=== PATIENT | male | born 1945 | race Caucasian/White ===

== ENCOUNTER 2016-09-28 14:36 | Inpatient (IN) | payer BC, OTHER ==
[~2016-09-28] VITALS: Ht 172.7 cm; Wt 79.3 kg
[~2016-09-28 14:36] MED LIST: ASPEC81 PO; ATOR-26 PO; LSN25 PO; METO50TA7 PO; NTRGSL/4 UT; PLV75 PO
[2016-09-28] MEDS ORDERED: OPTIRAY 320 IV PRN (15:15)
[2016-09-28 15:16] LABS: BASO % 0.1 %; BASO ABS # 0.01 K/uL (0-0.2); COMPLETE YES; EOS % 0.3 %; HEMATOCRIT 42.8 % (42-52); IG% 0.3 %; LYMPH % 6.6 %; LYMPH ABS # 0.99 K/uL (1.2-3.4); MEAN CELL VOLUME 92.4 fL (80-100); MEAN CORPUSCULAR HGB CONC 34.6 g/dl (32-36); MEAN PLATELET VOLUME 9.7 fL (7.4-10.4); MONO % 6.4 %; NEUT % 86.3 %; PLATELET COUNT 275 K/uL (130-400); RED BLOOD COUNT 4.63 M/uL (4.7-6.1); WHITE BLOOD COUNT 15.05 K/uL (4.8-10.8)
[2016-09-28 15:35] LABS: BUN/CREATININE RATIO 15.7 (10-20); CALCIUM 8.4 mg/dl (8.5-10.1); POTASSIUM 3.7 mmol/L (3.5-5.1)
[2016-09-28] MEDS ORDERED: PANT40TA PO (16:01)
[2016-09-28] MEDS ORDERED: ASPI81TA28 PO (16:01)
[2016-09-28] MEDS ORDERED: LISI-789 PO (16:01)
--- NOTE | 2016-09-28 16:13 | EMERGENCY ROOM VISIT NOTE ---
ED Visit Note First contact with patient: 14:46 I have seen and examined this patient with Darling Watson and generally agree with the treatment plan as discussed. Current/Historical Medications Scheduled Aspirin (Aspirin Ec), 81 MG PO DAILY Atorvastatin (Lipitor), 80 MG PO QPM Clopidogrel Bisulfate (Clopidogrel), 75 MG PO DAILY Lisinopril (Zestril), 2.5 MG PO DAILY Metoprolol Succ (Toprol Xl) (Toprol-Xl), 50 MG PO DAILY Nitroglycerin (Nitrostat), 0.4 MG UT PRN Pantoprazole (Protonix), 40 MG PO DAILY Allergies Coded Allergies: Penicillins (Verified Allergy, Severe, SEVERE HIVES, 09/28/16) Vital Signs Date Time Temp Pulse Resp B/P (MAP) Pulse Ox O2 Delivery O2 Flow Rate FiO2 09/28/16 14:38 36.6 89 20 150/84 96 Room Air Laboratory Results 09/28/16 15:05 Red Blood Count 4.63, Mean Corpuscular Volume 92.4, Mean Corpuscular Hemoglobin 32.0, Mean Corpuscular Hemoglobin Concent 34.6, Mean Platelet Volume 9.7, Neutrophils (%) (Auto) 86.3, Lymphocytes (%) (Auto) 6.6, Monocytes (%) (Auto) 6.4, Eosinophils (%) (Auto) 0.3, Basophils (%) (Auto) 0.1, Neutrophils # (Auto) 12.98, Lymphocytes # (Auto) 0.99, Monocytes # (Auto) 0.97, Eosinophils # (Auto) 0.05, Basophils # (Auto) 0.01 09/28/16 15:05 Test 09/28/16 15:05 White Blood Count 15.05 K/uL (4.8-10.8) Red Blood Count 4.63 M/uL (4.7-6.1) Hemoglobin 14.8 g/dL (14.0-18.0) Hematocrit 42.8 % (42-52) Mean Corpuscular Volume 92.4 fL (80-100) Mean Corpuscular Hemoglobin 32.0 pg (25-34) Mean Corpuscular Hemoglobin Concent 34.6 g/dl (32-36) Platelet Count 275 K/uL (130-400) Mean Platelet Volume 9.7 fL (7.4-10.4) Neutrophils (%) (Auto) 86.3 % Lymphocytes (%) (Auto) 6.6 % Monocytes (%) (Auto) 6.4 % Eosinophils (%) (Auto) 0.3 % Basophils (%) (Auto) 0.1 % Neutrophils # (Auto) 12.98 K/uL (1.4-6.5) Lymphocytes # (Auto) 0.99 K/uL (1.2-3.4) Monocytes # (Auto) 0.97 K/uL (0.11-0.59) Eosinophils # (Auto) 0.05 K/uL (0-0.5) Basophils # (Auto) 0.01 K/uL (0-0.2) RDW Standard Deviation 45.5 fL (36.4-46.3) RDW Coefficient of Variation 13.3 % (11.5-14.5) Immature Granulocyte % (Auto) 0.3 % Immature Granulocyte # (Auto) 0.05 K/uL (0.00-0.02) Anion Gap 10.0 mmol/L (3-11) Est Creatinine Clear Calc Drug Dose 67.4 ml/min Estimated GFR () 88.6 Estimated GFR (Non- 76.5 BUN/Creatinine Ratio 15.7 (10-20) Calcium Level 8.4 mg/dl (8.5-10.1) Total Bilirubin 0.7 mg/dl (0.2-1) Direct Bilirubin 0.2 mg/dl (0-0.2) Aspartate Amino Transf (AST/SGOT) 14 U/L (15-37) Alanine Aminotransferase (ALT/SGPT) 18 U/L (12-78) Alkaline Phosphatase 71 U/L (45-117) Total Protein 7.3 gm/dl (6.4-8.2) Albumin 3.7 gm/dl (3.4-5.0) Lipase 206 U/L (73-393) Departure Information Referrals Sundar Guzman D.O. (PCP) Patient Instructions My [facility]
[2016-09-28 16:32] LABS: URINE APPEARANCE CLEAR (CLEAR); URINE BILIRUBIN NEG (NEG); URINE COLOR YELLOW; URINE NITRITE NEG (NEG); URINE SPECIFIC GRAVITY 1.014 (1.000-1.030); UROBILINOGEN NEG (NEG); ZZUR CULT IF INDIC CLEAN CATCH NO
[2016-09-28 16:36] LABS: MANUAL MICROSCOPIC REQUIRED? NO; REVIEW REQ? NO
--- NOTE | 2016-09-28 18:14 | DIAGNOSTIC IMAGING REPORT ---
CT ABD/PELVIS IV AND ORAL CONT CLINICAL HISTORY: Right lower quadrant abdominal pain COMPARISON STUDY: April 2008 TECHNIQUE: Following the IV administration of 119 mL of Optiray-320, CT scan of the abdomen and pelvis was performed from the lung bases to the proximal femurs. Images are reviewed in the axial, sagittal, and coronal planes. IV contrast was administered without complication. CT DOSE: 304.62 mGy.cm FINDINGS: Lower chest: The heart is normal in size and configuration, without pericardial effusion. The lung bases and pleural spaces are clear. Liver: There is a stable 22 mm exophytic nodule arising from the inferior aspect of the right lobe of the liver. Gallbladder: Unremarkable. Spleen: Normal in size and attenuation. Pancreas: Unremarkable. Adrenal glands: There is stable mild nodular thickening of the left adrenal gland Kidneys: There is an 8 mm mid pole left renal hypodensity, likely representing a cyst. There is no hydronephrosis. Bowel: There are no transition zones to indicate bowel obstruction. The proximal and mid portions of the appendix appear normal. There is dilatation of the appendiceal tip. Adjacent to the appendiceal tip is a 35mm rim-enhancing fluid collection. There is infiltration of the surrounding fat. The findings are viewed as suspicious for a perforated tip appendicitis with a periappendiceal abscess. There is extensive colonic diverticulosis. There are no acute peridiverticular inflammatory changes. Peritoneum: There is no intraperitoneal free air or abdominal ascites. Vasculature: The abdominal aorta is normal in course and caliber. Adenopathy: None. Pelvic viscera: The bladder, and pelvic viscera are unremarkable. Skeletal structures: No destructive osseous lesions are seen. IMPRESSION: 1. No evidence of bowel obstruction. No evidence of free air 2. Right lower quadrant inflammatory process. The findings most likely are secondary to a ruptured tip appendicitis with an adjacent 35mm periappendiceal abscess 3. Extensive diverticulosis. No evidence of acute peridiverticular inflammatory change 4. Relatively stable 22 mm exophytic nodule arising from the inferior aspect of the right lobe of the liver. This is felt to be benign Electronically signed by: Rio Pedroza M.D. 09/28/2016 6:12 PM Dictated Date/Time: 09/28/2016 6:01 PM
--- NOTE | 2016-09-28 18:55 | EMERGENCY ROOM VISIT NOTE ---
History First contact with patient: 14:46 Chief Complaint: ABDOMINAL PAIN Stated Complaint: LOWER RIGHT STOMACH PAIN Nursing Triage Summary: see triage note History of Present Illness The patient is a 71 year old male who presents to the Emergency Room with complaints of right lower abdominal pain for one month. The patient denies any associated fever, nausea, vomiting or diarrhea. The patient denies any change in urinary status. He denies any dysuria, hematuria or urgency. The patient states that the pain is intermittent and he may go several days without pain and then he gets a back again. It is worse with movement or when he is standing. 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 The patient is working in [place]. He is normally only home on the weekends therefore it is hard to get into his family doctor, Dr. Guzman for evaluation. Last week while he was home on the weekend he went to urgent care for the symptoms and they didn't "nothing". Today he was experiencing some increased pain which is why he came to the emergency room. The patient cannot correlate the increased pain with food intake. The patient does not feel any lump in the area of the pain. The patient denies any testicular or scrotal pain. Review of Systems 10 system review was performed and was negative unless stated otherwise history of present illness. Past Medical/Surgical History Medical Problems: (1) Diverticulosis Of Colon With Hemorrhage (2) Esophageal Reflux (3) Hyperlipidemia Nec/Nos (4) Hypertension Nos (5) Old Myocardial Infarct Shoulder surgery Family History Cancer Heart disease Hypertension Lung disease Social History Smoking Status: Never Smoker Alcohol Use: occasionally Marital Status: Housing Status: lives with significant other Occupation Status: retired Current/Historical Medications Scheduled Aspirin (Aspirin Ec), 81 MG PO DAILY Atorvastatin (Lipitor), 80 MG PO QPM Clopidogrel Bisulfate (Clopidogrel), 75 MG PO DAILY Lisinopril (Zestril), 2.5 MG PO DAILY Metoprolol Succ (Toprol Xl) (Toprol-Xl), 50 MG PO DAILY Nitroglycerin (Nitrostat), 0.4 MG UT PRN Pantoprazole (Protonix), 40 MG PO DAILY Allergies Coded Allergies: Penicillins (Verified Allergy, Severe, SEVERE HIVES, 09/28/16) Physical Exam Vital Signs Date Time Temp Pulse Resp B/P (MAP) Pulse Ox O2 Delivery O2 Flow Rate FiO2 09/28/16 17:06 76 18 132/73 09/28/16 14:38 36.6 89 20 150/84 96 Room Air Physical Exam GENERAL: 71-year-old white male appears in no acute distress. MENTAL Status: Alert and oriented 3. EYES: No icterus noted MOUTH: Mucosa is moist NECK: Supple, no lymphadenopathy noted. No carotid bruits noted. LUNGS: Clear auscultation without wheezes rales or rhonchi. CARDIAC: Regular rate and rhythm without murmur. Pulses is full and equal throughout. BACK: No CVA tenderness noted. ABDOMEN: Positive bowel sounds all 4 quadrants. Soft, tenderness palpation in the right lower quadrant otherwise nontender to palpation without organomegaly or masses. I also examined the patient in the erect position with patient doing the Valsalva maneuver without any palpable masses. The area of pain is above the inguinal region. EXTREMITIES: No cyanosis or edema noted. Medical Decision & Procedures ER Provider Diagnostic Interpretation: CT ABD/PELVIS IV AND ORAL CONT CLINICAL HISTORY: Right lower quadrant abdominal pain COMPARISON STUDY: April 2008 TECHNIQUE: Following the IV administration of 119 mL of Optiray-320, CT scan of the abdomen and pelvis was performed from the lung bases to the proximal femurs. Images are reviewed in the axial, sagittal, and coronal planes. IV contrast was administered without complication. CT DOSE: 304.62 mGy.cm FINDINGS: Lower chest: The heart is normal in size and configuration, without pericardial effusion. The lung bases and pleural spaces are clear. Liver: There is a stable 22 mm exophytic nodule arising from the inferior aspect of the right lobe of the liver. Gallbladder: Unremarkable. Spleen: Normal in size and attenuation. Pancreas: Unremarkable. Adrenal glands: There is stable mild nodular thickening of the left adrenal gland Kidneys: There is an 8 mm mid pole left renal hypodensity, likely representing a cyst. There is no hydronephrosis. Bowel: There are no transition zones to indicate bowel obstruction. The proximal and mid portions of the appendix appear normal. There is dilatation of the appendiceal tip. Adjacent to the appendiceal tip is a 35mm rim-enhancing fluid collection. There is infiltration of the surrounding fat. The findings are viewed as suspicious for a perforated tip appendicitis with a periappendiceal abscess. There is extensive colonic diverticulosis. There are no acute peridiverticular inflammatory changes. Peritoneum: There is no intraperitoneal free air or abdominal ascites. Vasculature: The abdominal aorta is normal in course and caliber. Adenopathy: None. Pelvic viscera: The bladder, and pelvic viscera are unremarkable. Skeletal structures: No destructive osseous lesions are seen. IMPRESSION: 1. No evidence of bowel obstruction. No evidence of free air 2. Right lower quadrant inflammatory process. The findings most likely are secondary to a ruptured tip appendicitis with an adjacent 35mm periappendiceal abscess 3. Extensive diverticulosis. No evidence of acute peridiverticular inflammatory change 4. Relatively stable 22 mm exophytic nodule arising from the inferior aspect of the right lobe of the liver. This is felt to be benign Electronically signed by: Rio Pedroza M.D. 09/28/2016 6:12 PM Laboratory Results 09/28/16 15:05 Red Blood Count 4.63, Mean Corpuscular Volume 92.4, Mean Corpuscular Hemoglobin 32.0, Mean Corpuscular Hemoglobin Concent 34.6, Mean Platelet Volume 9.7, Neutrophils (%) (Auto) 86.3, Lymphocytes (%) (Auto) 6.6, Monocytes (%) (Auto) 6.4, Eosinophils (%) (Auto) 0.3, Basophils (%) (Auto) 0.1, Neutrophils # (Auto) 12.98, Lymphocytes # (Auto) 0.99, Monocytes # (Auto) 0.97, Eosinophils # (Auto) 0.05, Basophils # (Auto) 0.01 09/28/16 15:05 Test 09/28/16 15:05 09/28/16 15:50 White Blood Count 15.05 K/uL (4.8-10.8) Red Blood Count 4.63 M/uL (4.7-6.1) Hemoglobin 14.8 g/dL (14.0-18.0) Hematocrit 42.8 % (42-52) Mean Corpuscular Volume 92.4 fL (80-100) Mean Corpuscular Hemoglobin 32.0 pg (25-34) Mean Corpuscular Hemoglobin Concent 34.6 g/dl (32-36) Platelet Count 275 K/uL (130-400) Mean Platelet Volume 9.7 fL (7.4-10.4) Neutrophils (%) (Auto) 86.3 % Lymphocytes (%) (Auto) 6.6 % Monocytes (%) (Auto) 6.4 % Eosinophils (%) (Auto) 0.3 % Basophils (%) (Auto) 0.1 % Neutrophils # (Auto) 12.98 K/uL (1.4-6.5) Lymphocytes # (Auto) 0.99 K/uL (1.2-3.4) Monocytes # (Auto) 0.97 K/uL (0.11-0.59) Eosinophils # (Auto) 0.05 K/uL (0-0.5) Basophils # (Auto) 0.01 K/uL (0-0.2) RDW Standard Deviation 45.5 fL (36.4-46.3) RDW Coefficient of Variation 13.3 % (11.5-14.5) Immature Granulocyte % (Auto) 0.3 % Immature Granulocyte # (Auto) 0.05 K/uL (0.00-0.02) Anion Gap 10.0 mmol/L (3-11) Est Creatinine Clear Calc Drug Dose 67.4 ml/min Estimated GFR () 88.6 Estimated GFR (Non- 76.5 BUN/Creatinine Ratio 15.7 (10-20) Calcium Level 8.4 mg/dl (8.5-10.1) Total Bilirubin 0.7 mg/dl (0.2-1) Direct Bilirubin 0.2 mg/dl (0-0.2) Aspartate Amino Transf (AST/SGOT) 14 U/L (15-37) Alanine Aminotransferase (ALT/SGPT) 18 U/L (12-78) Alkaline Phosphatase 71 U/L (45-117) Total Protein 7.3 gm/dl (6.4-8.2) Albumin 3.7 gm/dl (3.4-5.0) Lipase 206 U/L (73-393) Urine Color YELLOW Urine Appearance CLEAR (CLEAR) Urine pH 5.0 (4.5-7.5) Urine Specific [place] 1.014 (1.000-1.030) Urine Protein NEG (NEG) Urine Glucose (UA) NEG (NEG) Urine Ketones TRACE (NEG) Urine Occult Blood NEG (NEG) Urine Nitrite NEG (NEG) Urine Bilirubin NEG (NEG) Urine Urobilinogen NEG (NEG) Urine Leukocyte Esterase NEG (NEG) ED Course The patient was evaluated. The patient's EMR and medication list was reviewed. The patient's pressure was initially elevated but on reevaluation was 132/73. IV access was obtained. CBC differential, renal profile, LFTs and lipase levels were ordered. Urinalysis was ordered. The patient was offered pain medication but initially declined. Labs are reviewed. The patient's white count was elevated 15,000 otherwise labs are unremarkable. Urinalysis was negative. CT of the abdomen and pelvis with IV and oral contrast was ordered and interpreted by the radiologist as above. The patient was independently evaluated by Dr. Castellon who agrees with treatment plan. CT revealed ruptured tip of the appendix with a [address] Castellon left for the day therefore I discussed the case with Dr. Kay who was in agreement with treatment plan. Dr. Bar was consulted Medical Decision Differential diagnoses include reflux, gastritis, gastroenteritis, pancreatitis , cholelithiasis, cholecystitis, appendicitis, mesenteric ischemia, pyelonephritis, urinary tract infection, renal colic, diverticulitis, shingles, bowel obstruction, intussusception, hernia, Impression Primary Impression: Appendicitis Departure Information Dispostion Being Evaluated By Surgeon Condition GOOD Referrals Sundar Guzman DMaryOMary (PCP) Patient Instructions My [facility] Problem Qualifiers Primary Impression: Appendicitis Appendicitis type: acute appendicitis Acute appendicitis type: other Qualified Codes: K35.89 - Other acute appendicitis
[2016-09-28] MEDS ORDERED: METRONIDAZOLE 500MG / 100ML NSS IV STA (19:20)
--- NOTE | 2016-09-28 19:31 | History & Physical Bridge Note ---
H&P Re-Evaluation Bridge Note: I have examined the patient, reviewed the History & Physical and in the interval since the performance of the History & Physical I have noted the following changes of clinical significance: No changes noted and p dictated stat line 100 confirmation number [id number] at 19;25 dx acute appendicitis, plan open appendectomy
[2016-09-28] MEDS ORDERED: METRONIDAZOLE 500MG / 100ML NSS ONE (19:39)
[2016-09-28] MEDS ORDERED: CIPROFLOXACIN 400MG / 200ML D5W ONE (19:39)
--- NOTE | 2016-09-28 19:56 | HISTORY & PHYSICAL EXAMINATION ---
DATE OF ADMISSION: 09/28/2016 Seen in the Emergency Room on 09/28/2016 at 7:45 in the evening. SUMMARY: I was called by Maryana Watson, vero PA, just approximately 20 minutes ago for this gentleman that had findings of what appears to be acute appendicitis. His story dates back to about a month ago. 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 Actually was seen last Thursday or Thursday for the pain which became a little bit more significant always localized on right lower quadrant, went to an urgent center were apparently to the patient and they said it was probably a belt used for his work that was causing his painin there, spent about 4 minutes with the patient. They did not order anything and the pain progressively got worse. He went back to work after that visit and where it came back today somewhere his noticed that he was not getting any better and actually looked worse. PAST MEDICAL HISTORY: His past medical history is positive for having had shoulder surgery. In the past, he had rheumatic fever as a child and had significant REACTION TO PENICILLIN. Approximately in 2008, he had coronary stents placed and he has been on Plavix since that time. He is followed locally by Dr. Frye, but has had no cardiac issues. ALLERGIES: OTHER THAN THE PENICILLIN, HE DENIES ANY ALLERGIES. REVIEW OF SYSTEMS: Denies any shortness of breath or any neurological symptoms. PRESENT MEDICATIONS: Include: Aspirin, Lipitor, Plavix, Zestril, Toprol, Nitrostat, and Protonix. PHYSICAL EXAMINATION: GENERAL: At this time, revealed a very pleasant 71-year-old gentleman who said he wants to do anything to get rid of this pain. HEAD: Normocephalic. EYES: PERRLA. The sclerae is nonicteric. NECK: There is no cervical lymphadenopathy. HEART: Normal sinus. LUNGS: Clear. ABDOMEN: He is exquisitely tender in the right lower quadrant at McBurney's point. He might have a small hernia in the right inguinal area, but this is not the issue. This is only appreciated with a cough. EXTREMITIES: No edema appreciated. VITAL SIGNS: His last vitals showed a temperature of 36.6, pulse 76, respirations 18, blood pressure 132/73, O2 sats 96 on room air. LABORATORY DATA: He got a 15,000 white count with a left shift. His chemistries showed a BUN of 16, creatinine 1.0, potassium 3.7. IMAGING DATA: CAT scan findings reviewed. I could not see the actual imaging at this time, but basically it seems like he has extensive diverticulosis but no evidence of any acute inflammatory changes, right lower quadrant inflammatory process, most likely secondary to ruptured tip appendicitis and adjacent 35 mm periappendiceal abscess. IMPRESSION: At this point, given the severity of his symptomatology certainly one consideration would be to treat him with antibiotics. The abscess is about 35 mm, probably be hard to drain percutaneously, but I suspect given all the symptomatology and what were are dealing with, I advised the patient just proceed for appendectomy. We will do it open just because of the Plavix, afraid to do it laparoscopically. Risk and complications of surgery were explained to the patient which includes bleeding, infection and he would like to proceed accordingly. As he stated he could cut me completely wide open to get rid of this pain. ONI
[2016-09-28] MEDS ORDERED: LIDO 2%/EPINEPHRINE 1:100000 20 ML VIAL INFIL ONE (20:06)
--- NOTE | 2016-09-28 20:14 | DIAGNOSTIC IMAGING REPORT ---
CHEST ONE VIEW PORTABLE CLINICAL HISTORY: Preoperative chest COMPARISON STUDY: February 19, 2014 FINDINGS: The cardiac and mediastinal contours are normal. There is no evidence of focal pulmonary consolidation. There is no evidence of failure. No pleural effusions are visualized.[ There is a tiny calcified left lower lung zone granuloma IMPRESSION: No active disease in the chest. Electronically signed by: Rio Pedroza M.D. 09/28/2016 8:13 PM Dictated Date/Time: 09/28/2016 8:13 PM
[2016-09-28] MEDS ORDERED: ATROPINE SULFATE 0.1 MG/ML 5ML SYR IV PRN (21:00)
[2016-09-28] MEDS ORDERED: ONDANSETRON INJ 2 MG/ML 2 ML VIAL IV PRN ×2 (21:00→22:45)
[2016-09-28] MEDS ORDERED: KETOROLAC TROMETHAMINE 30 MG/ML VIAL IV. PRN (21:00)
[2016-09-28] MEDS ORDERED: EpHEDrine SULFATE INJ 50 MG/ML AMP IV PRN (21:00)
[2016-09-28] MEDS ORDERED: FENTANYL CITRATE INJ 50 MCG/1 ML 2 ML VIAL IV PRN (21:00)
[2016-09-28] MEDS ORDERED: PROPOFOL IV EMULSION 10 MG/ML 20 ML VIAL IV ONE (21:01)
[2016-09-28] MEDS ORDERED: LIDOCAINE HCL 2% 2 ML VIAL (20MG/ML) ONE (21:01)
[2016-09-28] MEDS ORDERED: ROCURONIUM BROMIDE 10 MG/ML 5 ML VIAL ONE (21:02)
[2016-09-28] MEDS ORDERED: SUCCINYLCHOLINE CHLORIDE 20 MG/ML 10 ML VIAL IV ONE (21:02)
[2016-09-28] MEDS ORDERED: FENTANYL CITRATE INJ 50 MCG/1 ML 2 ML VIAL ONE ×2 (21:03)
[2016-09-28] MEDS ORDERED: MIDAZOLAM HCL 1 MG/ML 2ML VIAL ONE (21:04)
[2016-09-28] MEDS ORDERED: LIDOCAINE/EPINEPHRINE 1% 20 ML VIAL ONE (21:26)
[2016-09-28] MEDS ORDERED: KETOROLAC TROMETHAMINE 30 MG/ML VIAL ONE (22:17)
[2016-09-28] MEDS ORDERED: NEOSTIGMINE METHYLSULFATE 5 MG/5 ML SYR ONE (22:23)
[2016-09-28] MEDS ORDERED: GLYCOPYRROLATE INJ 0.2 MG/ML VIAL ONE ×2 (22:23)
[2016-09-28] MEDS ORDERED: NITROGLYCERIN 0.4 MG SL PER TAB CHARGE UT SCH (22:45)
[2016-09-28] MEDS ORDERED: OXYCODONE/ACETAMINOPHEN 5-325 TAB PO PRN (22:45)
--- NOTE | 2016-09-28 22:53 | [facility] Post Operative Brief Note ---
Immediate Operative Summary Operative Date Sep 28, 2016. Pre-Operative Diagnosis Ruptured appendicitis Post-Operative Diagnosis Same as preop Procedure(s) Performed Appendectomy Surgeon Dr. Gonazlez Intermediate Project Manager Surgeon(s) 0 Estimated Blood Loss 5 cc Findings ruptured appendicitis Specimens A: appendix Culture of peritoneal fluid sent for routine C&S, anaerobic/aerobic microbes Drains 19 migel per stab and sub cut
--- NOTE | 2016-09-28 22:59 | Anesthesiology Progress Note ---
Anesthesia Post Op Note Date & Time Sep 28, 2016 at 22:59 Vital Signs Pain Intensity: 6.0 Vital Signs Past 12 Hours Date Time Temp Pulse Resp B/P (MAP) Pulse Ox O2 Delivery O2 Flow Rate FiO2 09/28/16 20:57 72 17 136/82 96 Room Air 09/28/16 19:53 81 17 140/97 97 Room Air 09/28/16 17:06 76 18 132/73 09/28/16 14:38 36.6 89 20 150/84 96 Room Air Notes Mental Status: alert / awake / arousable, participated in evaluation Pt Amnestic to Procedure: Yes Nausea / Vomiting: adequately controlled Pain: adequately controlled Airway Patency, RR, SpO2: stable & adequate BP & HR: stable & adequate Hydration State: stable & adequate Anesthetic Complications: no major complications apparent
[2016-09-28 23:55] VITALS: BP 128/74; PULSE 75; TEMP 36.6; Ht 172.7 cm; Wt 79.3 kg
[2016-09-29] VITALS (10 sets, daily range): BP systolic 110–159; BP diastolic 68–92; PULSE 68–78; TEMP 36.4–37.2; O2SAT 94–97
[2016-09-29] MEDS: HYDROmorphone INJ 1 MG/ML SYR IV PRN ×4 (00:24→21:33)
[2016-09-29] MEDS: LACTATED RINGER'S 1000ML 1,000 ML IV SCH ×4 (01:20→20:06)
[2016-09-29] MEDS: METRONIDAZOLE / NSS 500 MG in PREMIXED NSS 100 ML IV SCH ×3 (04:40→20:07)
[2016-09-29] MEDS ORDERED: CIPROFLOXACIN 400MG / 200ML D5W IV ONE (06:00)
[2016-09-29 07:11] LABS: INR 1.1 (0.9-1.1); PROTHROMBIN TIME (PATIENT) 11.3 SECONDS (9.0-12.0)
--- NOTE | 2016-09-29 07:16 | OPERATIVE REPORT ---
DATE OF OPERATION: 09/28/2016 SURGEON: .Dr. Gonzalez. PREOPERATIVE DIAGNOSIS: Acute appendicitis, ruptured. POSTOPERATIVE DIAGNOSIS: Same. PROCEDURE: Open appendectomy. SUMMARY: After induction of general endotracheal anesthesia, the patient's abdomen was prepped with Betadine scrubbing solution and properly draped. We made a standard McBurney type incision, just a little bit inferior to the usual place, since the patient's pain seemed to be more inferior, on top of the inguinal ligament. Therefore, an incision was made, deepened through subcutaneous tissue, muscle splitting, we entered the peritoneal cavity, elevated the peritoneum. Once we elevated the peritoneum, we met with some whitish cloudy fluid, which we cultured. At this point, we were able to feel the appendix, which happened to be a little bit up above our incision. Therefore, we enlarged the incision sufficiently enough that we were able then to identify the cecum and elevate the base of the appendix that all the way up to half way was completely normal. We took it off the cecum using a JOSE ALEJANDRO stapler. The mesoappendix was then divided, using hemostats and ligated with 2-0 silk. Towards the distal tip of the appendix, which was very much enlarged, we could not see any distal appendix itself. There was, what appeared to be, almost a mucinous type of [id number] drainage from the tip itself, which appeared to be larger than normal. At this point, we were able then to free it completely, irrigate the peritoneal cavity. There was no other evidence of any seeding or anything suspicious for a mucinous process. At this point, a stab wound inferior to incision and placed the Jorge Luis drain down in the cul-de-sac right gutter area. Actually, it came right out almost to the inferior medial aspect of the incision, since we were a stage above the inguinal canal. We closed, then, the peritoneum with a running 0 chromic. Muscle splitting incision was reapproximated with 2-0 Vicryl suture. Subcutaneous tissue was irrigated. We then closed the fascia on top of the muscle splitting incision, using interrupted 2-0 Dexon suture, irrigated it subQ, placed a piece of the Anabella drain subcutaneously, junior for skin edges. Dressing was applied. The procedure was tolerated well by the patient. Estimated blood loss approximately 5 mL. The patient was taken to recovery room in good condition. I attest to the content of the Intraoperative Record and any orders documented therein. Any exceptions are noted below. MTDD
--- NOTE | 2016-09-29 07:45 | Surgery Progress Note ---
Surgery Progress Note Date of Service Sep 29, 2016. Subjective Post OP Day: 1 + feeling well, + pain controlled, No nausea Objective Vital Signs: Date Time Temp Pulse Resp B/P (MAP) Pulse Ox O2 Delivery O2 Flow Rate FiO2 09/29/16 07:30 36.9 73 18 136/77 (96) 97 Room Air 09/29/16 03:16 36.6 73 14 125/69 (87) 97 Room Air 09/29/16 02:04 36.5 77 14 110/68 (82) 96 Room Air 09/29/16 01:02 36.8 78 14 121/71 (88) 95 Room Air 09/29/16 00:25 36.4 75 14 132/78 (96) 94 Room Air 09/28/16 23:55 Room Air 09/28/16 23:55 Room Air 09/28/16 23:55 36.6 75 14 128/74 Room Air 09/28/16 23:47 78 16 09/28/16 23:47 37.1 78 16 123/71 (79) 98 09/28/16 23:42 78 18 132/70 (80) 95 09/28/16 23:42 79 18 09/28/16 23:37 78 17 09/28/16 23:37 79 17 130/70 (84) 96 09/28/16 23:32 79 12 129/65 (74) 95 09/28/16 23:32 79 12 09/28/16 23:27 80 16 129/73 (95) 98 Room Air 09/28/16 23:27 80 16 09/28/16 23:22 81 136/78 (87) 99 09/28/16 23:22 81 09/28/16 23:21 37.0 80 16 99 Mask 2 09/28/16 23:21 80 09/28/16 23:17 138/80 (103) 09/28/16 23:16 82 09/28/16 23:16 82 100 09/28/16 23:12 134/73 (87) 09/28/16 23:11 79 14 09/28/16 23:11 78 14 100 09/28/16 23:07 138/78 (99) 09/28/16 23:06 82 12 100 09/28/16 23:06 82 14 09/28/16 23:02 150/73 (94) 09/28/16 23:01 83 18 09/28/16 23:01 83 18 100 09/28/16 22:57 155/79 (108) 09/28/16 22:56 85 10 09/28/16 22:56 85 16 100 Mask 8 09/28/16 22:53 159/84 (97) 09/28/16 21:50 36.4 83 18 159/84 (97) 100 Mask 10 09/28/16 20:57 72 17 136/82 96 Room Air 09/28/16 19:53 81 17 140/97 97 Room Air 09/28/16 17:06 76 18 132/73 09/28/16 14:38 36.6 89 20 150/84 96 Room Air Physical Exam: Jorge Luis drainage (35 cc) Abdomen: soft Incision(s): clean, drainage (hemanth in incision) Laboratory Results: Results Past 24 Hours Test 09/28/16 15:05 09/28/16 15:50 09/28/16 20:57 09/29/16 06:17 Range/Units White Blood Count 15.05 4.8-10.8 K/uL Red Blood Count 4.63 4.7-6.1 M/uL Hemoglobin 14.8 14.0-18.0 g/dL Hematocrit 42.8 42-52 % Mean Corpuscular Volume 92.4 80-100 fL Mean Corpuscular Hemoglobin 32.0 25-34 pg Mean Corpuscular Hemoglobin Concent 34.6 32-36 g/dl Platelet Count 275 130-400 K/uL Mean Platelet Volume 9.7 7.4-10.4 fL Neutrophils (%) (Auto) 86.3 % Lymphocytes (%) (Auto) 6.6 % Monocytes (%) (Auto) 6.4 % Eosinophils (%) (Auto) 0.3 % Basophils (%) (Auto) 0.1 % Neutrophils # (Auto) 12.98 1.4-6.5 K/uL Lymphocytes # (Auto) 0.99 1.2-3.4 K/uL Monocytes # (Auto) 0.97 0.11-0.59 K/uL Eosinophils # (Auto) 0.05 0-0.5 K/uL Basophils # (Auto) 0.01 0-0.2 K/uL RDW Standard Deviation 45.5 36.4-46.3 fL RDW Coefficient of Variation 13.3 11.5-14.5 % Immature Granulocyte % (Auto) 0.3 % Immature Granulocyte # (Auto) 0.05 0.00-0.02 K/uL Sodium Level 144 136-145 mmol/L Potassium Level 3.7 3.5-5.1 mmol/L Chloride Level 109 98-107 mmol/L Carbon Dioxide Level 25 21-32 mmol/L Anion Gap 10.0 3-11 mmol/L Blood Urea Nitrogen 16 7-18 mg/dl Creatinine 1.00 0.60-1.40 mg/dl Est Creatinine Clear Calc Drug Dose 67.4 ml/min Estimated GFR () 88.6 Estimated GFR (Non- 76.5 BUN/Creatinine Ratio 15.7 10-20 Random Glucose 93 70-99 mg/dl Calcium Level 8.4 8.5-10.1 mg/dl Total Bilirubin 0.7 0.2-1 mg/dl Direct Bilirubin 0.2 0-0.2 mg/dl Aspartate Amino Transf (AST/SGOT) 14 15-37 U/L Alanine Aminotransferase (ALT/SGPT) 18 12-78 U/L Alkaline Phosphatase 71 45-117 U/L Total Protein 7.3 6.4-8.2 gm/dl Albumin 3.7 3.4-5.0 gm/dl Lipase 206 73-393 U/L Urine Color YELLOW Urine Appearance CLEAR CLEAR Urine pH 5.0 4.5-7.5 Urine Specific [place] 1.014 1.000-1.030 Urine Protein NEG NEG Urine Glucose (UA) NEG NEG Urine Ketones TRACE NEG Urine Occult Blood NEG NEG Urine Nitrite NEG NEG Urine Bilirubin NEG NEG Urine Urobilinogen NEG NEG Urine Leukocyte Esterase NEG NEG Bedside Glucose 91 70-99 mg/dl Prothrombin Time 11.3 9.0-12.0 SECONDS Prothromb Time International Ratio 1.1 0.9-1.1 Microbiology Results 09/28/16 Gram Stain - Final, Resulted 09/28/16 Bacterial Culture, Resulted Pending Assessment & Plan ruptured appendicitis stable post op can have clears, will advance slowly IV Cipro/Flagyl seen with Dr. Gonzalez
[2016-09-29 07:51] LABS: BASO % 0.2 %; BASO ABS # 0.02 K/uL (0-0.2); COMPLETE YES; EOS % 0.4 %; HEMATOCRIT 38.2 % (42-52); IG% 0.3 %; LYMPH % 11.6 %; LYMPH ABS # 1.22 K/uL (1.2-3.4); MEAN CELL VOLUME 93.6 fL (80-100); MEAN CORPUSCULAR HEMOGLOBIN 31.4 pg (25-34); MEAN CORPUSCULAR HGB CONC 33.5 g/dl (32-36); MEAN PLATELET VOLUME 9.8 fL (7.4-10.4); MONO % 8.8 %; NEUT % 78.7 %; PLATELET COUNT 246 K/uL (130-400); RED BLOOD COUNT 4.08 M/uL (4.7-6.1); WHITE BLOOD COUNT 10.56 K/uL (4.8-10.8)
[2016-09-29] MEDS ORDERED: PNEUMOCOCCAL ADMINISTRATION CHARGE ONE (08:00)
[2016-09-29] MEDS ORDERED: PNEUMOCOCCAL POLYSACCHARIDES 25 MCG/0.5 ML VIAL/SYR IM. ONE (08:00)
[2016-09-29 08:07] LABS: BUN/CREATININE RATIO 13.8 (10-20); POTASSIUM 3.6 mmol/L (3.5-5.1)
[2016-09-29] MEDS: CIPROFLOXACIN / D5W 400 MG in PREMIXED IN D5W 200 ML IV SCH ×2 (08:26→21:27)
[2016-09-29 08:28] LABS: CALCIUM 7.7 mg/dl (8.5-10.1)
[2016-09-29] MEDS: ASPIRIN 81 MG ECTAB PO SCH (10:10)
[2016-09-29] MEDS: METOPROLOL SUCC 50MG EXT REL TAB PO SCH (10:11)
[2016-09-29] MEDS: CLOPIDOGREL BISULFATE 75 MG TAB PO SCH (10:11)
[2016-09-29] MEDS: HEPARIN SOD 5000 UNIT/0.5 ML CARP SQ SCH ×2 (10:12→21:26)
[2016-09-29] MEDS: PANTOprazole SOD 40 MG TAB PO SCH (10:13)
[2016-09-29] MEDS: LISINOPRIL 2.5 MG TAB PO SCH (10:13)
[2016-09-29] MEDS ORDERED: NURSING VERBAL MED ORDER ONE (12:15)
[2016-09-29] MEDS ORDERED: ATORVASTATIN 40 MG TAB PO SCH (21:00)
[2016-09-30] MEDS: HYDROmorphone INJ 1 MG/ML SYR IV PRN (02:25)
[2016-09-30] MEDS: LACTATED RINGER'S 1000ML 1,000 ML IV SCH (03:52)
[2016-09-30] MEDS: METRONIDAZOLE / NSS 500 MG in PREMIXED NSS 100 ML IV SCH ×2 (03:52→11:50)
[2016-09-30 06:15] LABS: BASO % 0.2 %; BASO ABS # 0.02 K/uL (0-0.2); COMPLETE YES; EOS % 1.1 %; HEMATOCRIT 38.3 % (42-52); IG% 0.1 %; LYMPH % 16.4 %; MEAN CELL VOLUME 94.6 fL (80-100); MEAN CORPUSCULAR HEMOGLOBIN 32.8 pg (25-34); MEAN CORPUSCULAR HGB CONC 34.7 g/dl (32-36); MEAN PLATELET VOLUME 10.2 fL (7.4-10.4); NEUT % 70.2 %; PLATELET COUNT 248 K/uL (130-400); RED BLOOD COUNT 4.05 M/uL (4.7-6.1); WHITE BLOOD COUNT 9.15 K/uL (4.8-10.8)
[2016-09-30 06:50] LABS: BUN/CREATININE RATIO 8.7 (10-20); CALCIUM 7.9 mg/dl (8.5-10.1); CREATININE 1.1 mg/dl (0.60-1.40); POTASSIUM 3.2 mmol/L (3.5-5.1)
[2016-09-30] MEDS ORDERED: OXYCODONE/ACETAMINOPHEN 5-325 TAB PO PRN (07:30)
--- NOTE | 2016-09-30 07:34 | Surgery Progress Note ---
Surgery Progress Note Date of Service Sep 30, 2016. Subjective Post OP Day: 2 + feeling well, + diet (clears), No bowel movement, No nausea Objective Vital Signs: Date Time Temp Pulse Resp B/P (MAP) Pulse Ox O2 Delivery O2 Flow Rate FiO2 09/29/16 23:25 Room Air 09/29/16 23:15 36.8 68 18 137/80 (99) 96 Room Air 09/29/16 19:50 96 Room Air 09/29/16 19:00 37.2 76 21 139/83 (101) 96 Room Air 09/29/16 15:00 36.4 75 18 159/92 (114) 96 Room Air 09/29/16 10:08 78 139/73 (95) 09/29/16 08:00 Room Air Physical Exam: Jorge Luis drainage (50) Abdomen: non distended, soft Incision(s): clean, dry, no erythema Laboratory Results: Results Past 24 Hours Test 09/30/16 05:37 Range/Units White Blood Count 9.15 4.8-10.8 K/uL Red Blood Count 4.05 4.7-6.1 M/uL Hemoglobin 13.3 14.0-18.0 g/dL Hematocrit 38.3 42-52 % Mean Corpuscular Volume 94.6 80-100 fL Mean Corpuscular Hemoglobin 32.8 25-34 pg Mean Corpuscular Hemoglobin Concent 34.7 32-36 g/dl Platelet Count 248 130-400 K/uL Mean Platelet Volume 10.2 7.4-10.4 fL Neutrophils (%) (Auto) 70.2 % Lymphocytes (%) (Auto) 16.4 % Monocytes (%) (Auto) 12.0 % Eosinophils (%) (Auto) 1.1 % Basophils (%) (Auto) 0.2 % Neutrophils # (Auto) 6.42 1.4-6.5 K/uL Lymphocytes # (Auto) 1.50 1.2-3.4 K/uL Monocytes # (Auto) 1.10 0.11-0.59 K/uL Eosinophils # (Auto) 0.10 0-0.5 K/uL Basophils # (Auto) 0.02 0-0.2 K/uL RDW Standard Deviation 46.9 36.4-46.3 fL RDW Coefficient of Variation 13.5 11.5-14.5 % Immature Granulocyte % (Auto) 0.1 % Immature Granulocyte # (Auto) 0.01 0.00-0.02 K/uL Sodium Level 142 136-145 mmol/L Potassium Level 3.2 3.5-5.1 mmol/L Chloride Level 106 98-107 mmol/L Carbon Dioxide Level 26 21-32 mmol/L Anion Gap 10.0 3-11 mmol/L Blood Urea Nitrogen 10 7-18 mg/dl Creatinine 1.10 0.60-1.40 mg/dl Est Creatinine Clear Calc Drug Dose 61.3 ml/min Estimated GFR () 79.0 Estimated GFR (Non- 68.1 BUN/Creatinine Ratio 8.7 10-20 Random Glucose 120 70-99 mg/dl Calcium Level 7.9 8.5-10.1 mg/dl Assessment & Plan ruptured appendicitis WBC normal subQ drain removed advance diet IV Cipro/Flagyl seen with Dr. Gonzalez home today with drain if tolerates diet and po analgesics
[2016-09-30] MEDS ORDERED: METR-163 PO (07:36)
[2016-09-30] MEDS ORDERED: OXYC-57 PO ×2 (07:36→08:41)
[2016-09-30] MEDS ORDERED: CIPR-255 PO (07:36)
--- NOTE | 2016-09-30 07:40 | Discharge Instructions ---
Discharge Instructions Date of Service Sep 30, 2016. Admission Reason for Admission: Appendicitis Discharge Discharge Diagnosis / Problem: ruptured appendicitis Discharge Goals Goal(s): Decrease discomfort Activity Recommendations Activity Limitations: as noted below Lifting Limitations: no more than 10 pounds Shower/Bathe: no limitations (remove bandage daily to shower and recover until drain removed and drainage stops) Driving or Machine Use: after drain removed . Instructions / Follow-Up Instructions / Follow-Up Dr. Gonzalez's office on Tuesday 10/03 to have drain removed at 9:00, call [phone] with any other questions or if you need to change appt, [address] You may take ibuprofen between or instead of Percocet, do not take tylenol Current Hospital Diet Patient's current hospital diet: Low Fat Diet Discharge Diet Recommended Diet: Regular Diet (eat lightly for a few days) Procedures Procedures Performed: Appendectomy Pending Studies Studies pending at discharge: yes List of pending studies: Pathology Medical Emergencies . Who to Call and When: Medical Emergencies: If at any time you feel your situation is an emergency, please call 911 immediately. . Non-Emergent Contact Non-Emergency issues call your: Surgeon Call Non-Emergent contact if: you have a fever, temperature is above 101.5, your pain is not controlled, wound has increased drainage, wound has increased redness, wound has increased pain, you have any medication questions . "Provider Documentation" section prepared by Rivera Almeida. . VTE Core Measure Inpt VTE Proph given/why not?: Unfractionated heparin SQ, SCD's [place] Drug Monitoring Program Search Results: no issues identified
[2016-09-30 07:52] VITALS: O2SAT 96
[2016-09-30 07:54] VITALS: BP 172/90; PULSE 68; TEMP 36.7; O2SAT 96
[2016-09-30] MEDS: CIPROFLOXACIN / D5W 400 MG in PREMIXED IN D5W 200 ML IV SCH (08:02)
[2016-09-30] MEDS: ASPIRIN 81 MG ECTAB PO SCH (08:06)
[2016-09-30] MEDS: METOPROLOL SUCC 50MG EXT REL TAB PO SCH (08:06)
[2016-09-30] MEDS: CLOPIDOGREL BISULFATE 75 MG TAB PO SCH (08:06)
[2016-09-30] MEDS: LISINOPRIL 2.5 MG TAB PO SCH (08:07)
[2016-09-30] MEDS: PANTOprazole SOD 40 MG TAB PO SCH (08:07)
[2016-09-30] MEDS: HEPARIN SOD 5000 UNIT/0.5 ML CARP SQ SCH (08:46)
[2016-09-30 08:56] VITALS: BP 172/90; PULSE 68; TEMP 36.7; O2SAT 96
[2016-09-30] MEDS ORDERED: POTASSIUM CHLORIDE 20 MEQ TABCR PO SCH (09:00)
[2016-09-30] MEDS ORDERED: NURSING VERBAL MED ORDER ONE (09:00)
[2016-09-30 09:30] VITALS: BP 155/79
--- NOTE | 2016-09-30 14:41 | DISCHARGE SUMMARY ---
PRIMARY DISCHARGE DIAGNOSIS: Ruptured appendicitis. SECONDARY DISCHARGE DIAGNOSES: Hypertension, gastroesophageal reflux disease, hyperlipidemia, history of myocardial infarction. PROCEDURE PERFORMED: Open appendectomy. HOSPITAL COURSE: The patient is a 71-year-old male who presented to the Emergency Department with abdominal pain for several weeks, increased about a week ago. His white count was 15,000. CT was consistent with inflammatory process secondary in the right lower quadrant secondary to ruptured appendicitis and 3 cm periappendiceal abscess. He was taken to the operating room that evening for open appendectomy. A Jorge Luis drain was placed. SubQ tissues were also drained. The procedure was well tolerated. He was transferred to the surgical floor. IV Cipro and Flagyl were continued throughout admission as he has a penicillin allergy. He remained afebrile postoperatively. His white count had normalized by postoperative day 2. He was tolerating diet and oral analgesics. Preliminary cultures showed gram negative bacilli. SubQ drain was removed. He was instructed on care of the Jorge Luis drain and will discharge him home with that. Pathology is pending at the time of discharge. DISCHARGE INSTRUCTIONS: Discharge home. Follow up with Dr. Gonzalez's office in 3 days for removal of the Jorge Luis drain. DISCHARGE MEDICATIONS: Percocet 1-2 tablets every 4 hours as needed, Cipro 500 mg p.o. b.i.d. x10 and Flagyl 500 mg p.o. t.i.d. Resume home medications aspirin 81 mg daily, Lipitor 80 mg daily, Plavix 75 mg daily, and Zestril 2.5 mg daily, Toprol-XL 50 mg daily, Nitrostat 0.4 mg as needed and Protonix 40 mg daily.
== END 2016-09-30 12:48 | disposition home or self-care (01) | DRG 340 ==
LOC: C.EDB 14:38 → C.MSW 22:50 → ENRESERV 23:30
PROVIDERS: ADMIT Surgery; ATTEND Surgery
PROC: 0DTJ0ZZ Resection of Appendix, Open Approach (ICD-10-PCS; principal; 2016-09-28 21:00)
DX: K35.2 Acute appendicitis with generalized peritonitis (principal); I10 Essential (primary) hypertension; K21.9 Gastro-esophageal reflux disease without esophagitis; E78.5 Hyperlipidemia, unspecified; I25.2 Old myocardial infarction; Z98.61 Coronary angioplasty status; Z79.02 Long term (current) use of antithrombotics/antiplatelets; Z79.82 Long term (current) use of aspirin; Z82.49 Family history of ischemic heart disease and other diseases of the circulatory system

== ENCOUNTER → 2016-11-19 | Outpatient (CLI) | payer MEDICARE ==
[~2016-11-19] MED LIST changes: -ASPEC81 PO; +ASPI81TA28 PO; +CIPR-255 PO; +LISI-789 PO; -LSN25 PO; +OXYC-57 PO; +PANT40TA PO
[2016-11-19 13:59] LABS: CHOLESTEROL/HDL RATIO 2.5
== END | disposition home or self-care (01) ==
LOC: C.LAB1850 11:59
PROVIDERS: ATTEND Physician Assistant Medical
DX: I25.10 Atherosclerotic heart disease of native coronary artery without angina pectoris (principal)

== ENCOUNTER → 2017-01-20 | Outpatient (CLI) | payer MEDICARE ==
[~2017-01-20] MED LIST changes: +OPTIRAY 320 IV PRN
--- NOTE | 2017-01-20 07:23 | DIAGNOSTIC IMAGING REPORT ---
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 COMPARISON: CT abdomen and pelvis 09/28/2016 and 05/06/2008 TECHNIQUE: Multiple axial CT images of the abdomen and pelvis were obtained following the intravenous administration of 130 mL Optiray 320. Oral contrast also administered. A dose lowering technique was used consistent with the principals of JENNY. FINDINGS: Mild dependent bibasilar atelectasis. Calcified granulomas present within the lateral basal segment left lower lobe. No pneumoperitoneum identified. Imaged inferior cardiac chambers are unremarkable. There is an ovoid circumscribed exophytic lesion again seen arising from the inferior right hepatic lobe, 2.1 x 2.1 cm, previously measuring 2.1 x 1.8 cm on study dated 05/06/2008 demonstrating minimal nodularity or enhancement are fairly, again most likely benign. Gallbladder, pancreas, spleen and right adrenal gland are unremarkable. There is mild nodularity of the left adrenal gland suggesting hyperplasia. Probable cyst of the interpolar left kidney is seen, 7 mm. Similar-appearing lesion measuring 5 mm involves the inferior pole right kidney. No renal calculi or hydronephrosis. Ureters, urinary bladder and prostate are unremarkable. There is moderate plaquing of the abdominal aorta. No bulky retroperitoneal adenopathy. There are suggested bilateral hydroceles. There is no focal bowel wall thickening or bowel obstruction. Extensive sigmoid diverticulosis without diverticulitis. Prior appendectomy without complication. No ascites or peritoneal mass lesions are seen to suggest metastasis. Small fat filled periumbilical hernia is noted, diastases 1.4 cm. Soft tissues are unremarkable. Bones appear intact. Suspicious lytic or blastic bony lesions. Moderate intervertebral disc space narrowing at L5-S1. IMPRESSION: 1. Prior appendectomy. No evidence of metastatic disease or pathologic adenopathy. 2. Exophytic soft tissue lesion arising from the inferior right hepatic lobe is generally stable dating back to 05/06/2008 suggesting benign etiology. 3. Extensive colonic diverticulosis without diverticulitis. The above report was generated using voice recognition software. It may contain grammatical, syntax or spelling errors. Electronically signed by: Josh Cardenas M.D. 01/20/2017 7:22 AM Dictated Date/Time: 01/20/2017 7:13 AM
--- NOTE | 2017-01-20 07:34 | DIAGNOSTIC IMAGING REPORT ---
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 TECHNIQUE: Multidetector CT imaging of the chest was performed after the administration of intravenous contrast. IV contrast: 113 mL of Optiray 320. A dose lowering technique was used consistent with the principles of ALARA (as low as reasonably achievable). COMPARISON: 2008. CT DOSE (mGy.cm): The estimated cumulative dose is 653.80. FINDINGS: Nurse Private Duty topogram: Unremarkable. On soft tissue windows, normal thyroid and thoracic inlet. No axillary, supraclavicular, hilar, or mediastinal lymphadenopathy. Mild atherosclerosis of the descending thoracic aorta. Normal heart size. Coronary artery calcification. No pericardial or pleural effusion. Upper abdomen normal. On lung windows, minimal dependent changes likely atelectasis. Solid 3 mm fissural nodule in the right lower lobe (series 6 image 150). Solid 3 mm nodule in the right lower lobe (series 6 image 193) series. Few punctate nodules along the fissure in the superior segment of the left lower lobe. Old calcified granuloma also noted in the left lower lobe. Airways patent. On bone windows, mild degenerative changes of the thoracic spine. Degenerative changes of the bilateral glenohumeral joints. IMPRESSION: 1. No acute intrathoracic pathology. 2. Multiple small solid pulmonary nodules measuring up to 3 mm. These have been stable since 2008 and are consistent with a benign etiology. No evidence of intrathoracic metastatic disease. Electronically signed by: Bebo Westbrook M.D. 01/20/2017 7:32 AM Dictated Date/Time: 01/20/2017 7:26 AM
== END | disposition home or self-care (01) ==
LOC: C.CTS 06:23
PROVIDERS: ATTEND Surgery
DX: C18.1 Malignant neoplasm of appendix (principal); K57.90 Diverticulosis of intestine, part unspecified, without perforation or abscess without bleeding

== ENCOUNTER → 2017-07-23 | Outpatient (CLI) | payer MEDICARE ==
[~2017-07-23] MED LIST changes: -METO50TA7 PO; +METO50TA8 PO; -OPTIRAY 320 IV PRN; -OXYC-57 PO
[2017-07-23 12:41] LABS: ALT/SGPT 21 U/L (12-78); BLOOD UREA NITROGEN 16 mg/dl (7-18); CALCIUM 9.2 mg/dl (8.5-10.1); CARBON DIOXIDE 27 mmol/L (21-32); CREATININE 1.26 mg/dl (0.60-1.40); GLUCOSE 122 mg/dl (70-99); POTASSIUM 4.3 mmol/L (3.5-5.1); SODIUM 136 mmol/L (136-145)
[2017-07-23 12:47] LABS: AST/SGOT 14 U/L (15-37); CHOLESTEROL 137 mg/dl (0-200); LDL CHOLESTEROL CALCULATED 69 mg/dl
== END | disposition home or self-care (01) ==
LOC: C.LAB1850 10:16
PROVIDERS: ATTEND Physician Assistant Medical
DX: I25.10 Atherosclerotic heart disease of native coronary artery without angina pectoris (principal)

== ENCOUNTER → 2017-07-30 | Outpatient (CLI) | payer MEDICARE ==
[~2017-07-30] MED LIST changes: +OPTIRAY 320 IV PRN
--- NOTE | 2017-07-30 11:17 | DIAGNOSTIC IMAGING REPORT ---
ABD/PELVIS IV AND ORAL CONT CLINICAL HISTORY: 72 years-old Male presenting with appendiceal cancer. TECHNIQUE: Multidetector CT of the abdomen and pelvis was performed after the administration of oral and intravenous contrast. IV contrast: 120 mL of Optiray 320. A dose lowering technique was used consistent with the principles of ALARA (as low as reasonably achievable). COMPARISON: 01/20/2017. CT DOSE (mGy.cm): The estimated cumulative dose is 700.78. FINDINGS: Dress Cap Maker topogram: Unremarkable. Lung bases: Minimal basilar opacities, likely atelectasis. Calcified granuloma in the left lower lobe. Normal heart size. No pericardial or pleural effusion. Liver: Normal morphology. Stable 2.2 cm exophytic lesion arising from the inferior right hepatic lobe. Patent hepatic vasculature. Biliary: No intrahepatic or extrahepatic biliary ductal dilatation. Normal gallbladder. Pancreas: Normal. Spleen: Normal. Adrenal glands: Normal. Kidneys and ureters: Well-defined hypodensities in the left kidney, likely simple cysts. Minimal nonspecific left perinephric fat stranding, unchanged. No convincing evidence of nephrolithiasis. No hydronephrosis. Bladder: Incompletely evaluated secondary to underdistention. Pelvic organs: Prostate enlargement likely secondary to benign prostatic hyperplasia. Bowel: Diverticulosis. No pericolonic fat stranding. No bowel obstruction. The appendix is surgically absent. Peritoneal cavity: No free fluid or intraperitoneal gas. Lymph nodes: No enlarged lymph nodes in the abdomen or pelvis. Vasculature: Atherosclerosis of the normal caliber abdominal aorta. IVC patent. Abdominal wall: Small fat-containing umbilical hernia. Musculoskeletal: Degenerative changes of the spine. IMPRESSION: 1. Status post appendectomy. No evidence of metastatic disease in the abdomen or pelvis. No lymphadenopathy. 2. Diverticulosis. Electronically signed by: Bebo Westbrook M.D. 07/30/2017 11:15 AM Dictated Date/Time: 07/30/2017 11:06 AM
--- NOTE | 2017-07-30 11:21 | DIAGNOSTIC IMAGING REPORT ---
CHEST CT WITH CONTRAST CT DOSE: 700.78 mGy.cm HISTORY: Mucinous adenocarcinoma of the appendix. Metastatic survey. History of pulmonary nodules. CT TECHNIQUE: Multiaxial CT images of the chest were performed following the intravenous administration of contrast. A dose lowering technique was utilized adhering to the principles of ALARA. COMPARISON: CT chest 01/20/2017, CT abdomen and pelvis of same day, CT chest 10/06/2008.. FINDINGS: Ill-defined 7 mm nodule of the right thyroid appears low attenuating. 10 x 8 mm left paratracheal lymph node on image 127 series 6 appears unchanged. Mildly prominent right paratracheal and subcarinal lymph nodes measuring up to 8 mm are also unchanged. No pathologically enlarged lymph nodes by CT size criteria. Heart is normal in size without pericardial effusion. Coronary arterial disease. Thoracic aorta is normal in both course and caliber. The imaged pulmonary arterial tree is unremarkable. There is no pneumothorax, pleural effusion or focal airspace consolidation. Calcified granuloma abutting the fissure on the right, image 156 series 6 is unchanged. 2 mm solid noncalcified nodule right middle lobe on image 194 series 6 is unchanged. 2 mm nodule of the right lower lobe, image 208 series 6 is unchanged from study dated 01/20/2017. No new or enlarging pulmonary nodules identified. Calcified granuloma of the left lower lobe noted. 3 mm paratracheal lymph node of the left, image 157 series 6. Minimal dependent subsegmental bibasilar atelectasis. Central airways are patent. No acute process of the imaged upper abdomen. Soft tissues are unremarkable. Bones appear intact. IMPRESSION: 1. No acute intrathoracic abnormality identified. 2. Unchanged mildly prominent lymph nodes about the mediastinum and right candi are likely reactive without pathologically enlarged lymph nodes identified . 3. Prior granulomatous disease. Electronically signed by: Josh Cardenas M.D. 07/30/2017 11:20 AM Dictated Date/Time: 07/30/2017 11:11 AM
== END | disposition home or self-care (01) ==
LOC: C.CTS 10:28
PROVIDERS: ATTEND Surgery
DX: C18.1 Malignant neoplasm of appendix (principal); K57.90 Diverticulosis of intestine, part unspecified, without perforation or abscess without bleeding